=== PATIENT | male | born 1990 | race Caucasian/White ===

== ENCOUNTER 2020-09-03 17:52 | Emergency (ER) | payer SELFPAY ==
[2020-09-03 18:08] VITALS: BP 135/75; PULSE 99
[2020-09-03] MEDS ORDERED: Sodium Chloride 0.9% 10 ML Syringe FLUSH PRN (18:25)
--- NOTE | 2020-09-03 18:38 | EDM.PDOC ---
ED HPI GENERAL MEDICAL PROBLEM - General Chief Complaint: Chest Pain Stated Complaint: CHEST PAIN/RIGHT SIDE NUMBNESS Time Seen by Provider: 09/03/20 18:24 Source of Information: Reports: Patient, RN Notes Reviewed History Limitations: Reports: No Limitations - History of Present Illness INITIAL COMMENTS - FREE TEXT/NARRATIVE: Patient is a 29-year-old male who presents to the ER for the evaluation of his chest discomfort and a fall earlier today. Patient states that he has been having this chest pain off and on for the past few days, he did complain of some right side arm numbness with this today pain that radiates into his bilateral arms, neck and into his head. 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 He is having some back pain, and he thinks he struck his head on the wall, but he is not having a headache, he is having no blurred vision or double vision, and no other neurological symptoms apparent. Patient states that the pain seems to be worsened by walking. He does use marijuana socially, he does drink socially but has not used alcohol today, he does smoke cigarettes. Other than the narcolepsy, the patient states that he has no past medical history. He is further denying any fevers or chills, cough or shortness of breath, nausea/vomiting/diarrhea. States that he did smoke marijuana today as well. Middle Chest Pain Score (Numeric/FACES): 6 - Related Data Allergies Allergy/AdvReac Type Severity Reaction Status Date / Time No Known Allergies Allergy Verified 09/03/20 18:08 Home Meds: Home Meds OXcarbazepine [Trileptal] 1,200 mg PO BID 09/03/20 [History] busPIRone [Buspar] 20 mg PO BID 09/03/20 [History] Past Medical History Psychiatric History: Reports: Bipolar Social & Family History - Tobacco Use Tobacco Use Status *Q: Current Every Day Tobacco User Years of Tobacco use: 1 Packs/Tins Daily: 22 - Recreational Drug Use Recreational Drug Use: Yes Drug Use in Last 12 Months: Yes Recreational Drug Type: Reports: Marijuana/Hashish Recreational Drug Use Frequency: Weekly ED ROS GENERAL - Review of Systems Review Of Systems: Comprehensive ROS is negative, except as noted in HPI. ED EXAM, GENERAL - Physical Exam Exam: See Below Exam Limited By: No Limitations General Appearance: Alert, WD/WN, No Apparent Distress (pt does appear to be intoxicated from possible marijuana use) Eye Exam: Bilateral Eye: EOMI, Normal Inspection, PERRL Respiratory/Chest: No Respiratory Distress, Lungs Clear, Normal Breath Sounds, No Accessory Muscle Use, Chest Non-Tender Cardiovascular: Normal Peripheral Pulses, Regular Rate, Rhythm, No Edema Peripheral Pulses: 2+: Radial (L), Radial (R) Extremities: Normal Inspection, Normal Capillary Refill Neurological: Alert, Oriented, Normal Cognition, No Motor/Sensory Deficits Psychiatric: Normal Affect, Normal Mood Skin Exam: Warm, Dry, Intact, Normal Color, No Rash #1 Interpretation EKG Date: 09/03/20 Time: 18:21 Rhythm: NSR Rate (Beats/Min): 95 [place]: Normal P-Wave: Present QRS: Normal ST-T: Normal QT: Normal Comparison: NA - No Prior EKG EKG Interpretation Comments: No obvious ischemia or acute ST changes noted, reviewed by myself and Dr. Shah. Course - Vital Signs Last Recorded V/S: Last Vital Signs Temp 98.5 F 09/03/20 18:05 Pulse 99 09/03/20 18:05 Resp 16 09/03/20 18:05 BP 135/75 09/03/20 18:05 Pulse Ox 99 09/03/20 18:05 - Orders/Labs/Meds Orders: Active Orders 24 hr Category Date Time Status EKG Documentation Completion [RC] ASDIRECTED Care 09/03/20 18:11 Active Peripheral IV Care [RC] . DIRECTED Care 09/03/20 18:25 Active Sodium Chloride 0.9% [Saline Flush] Med 09/03/20 18:25 Active 10 ml FLUSH ASDIRECTED PRN Peripheral IV Insertion Adult [OM.PC] Stat Oth 09/03/20 18:25 Ordered EKG 12 Lead [EK] Stat Ther 09/03/20 18:11 Ordered Medication Orders Sodium Chloride (Sodium Chloride 0.9% 10 Ml Syringe) 10 ml FLUSH ASDIRECTED PRN PRN Reason: Keep Vein Open Last Admin: 09/03/20 20:17 Dose: 10 ml Documented by: PADMA Labs: Laboratory Tests 06/08/21 06/08/21 06/08/21 Range/Units 18:25 18:55 18:55 WBC 6.95 (4.23-9.07) K/mm3 RBC 4.33 L (4.63-6.08) M/mm3 Hgb 13.3 L (13.7-17.5) gm/dl Hct 40.0 L (40.1-51.0) % MCV 92.4 H (79.0-92.2) fl MCH 30.7 (25.7-32.2) pg MCHC 33.3 (32.2-35.5) g/dl RDW Std Deviation 45.1 H (35.1-43.9) fL Plt Count 188 (163-337) K/mm3 MPV 10.4 (9.4-12.3) fl Neut % (Auto) 67.8 (34.0-67.9) % Lymph % (Auto) 20.4 L (21.8-53.1) % [place] % (Auto) 8.9 (5.3-12.2) % Eos % (Auto) 2.7 (0.8-7.0) Baso % (Auto) 0.1 (0.1-1.2) % Neut # (Auto) 4.70 (1.78-5.38) K/mm3 Lymph # (Auto) 1.42 (1.32-3.57) K/mm3 [place] # (Auto) 0.62 (0.30-0.82) K/mm3 Eos # (Auto) 0.19 (0.04-0.54) K/mm3 Baso # (Auto) 0.01 (0.01-0.08) K/mm3 PT 10.7 (9.7-12.0) SECONDS INR 1.00 APTT 26.5 (21.7-31.4) SECONDS Sodium 145 (136-145) mEq/L Potassium 4.0 (3.5-5.1) mEq/L Chloride 110 H (98-107) mEq/L Carbon Dioxide 24 (21-32) mEq/L Anion Gap 15.0 (5-15) BUN 12 (7-18) mg/dL Creatinine 0.8 (0.7-1.3) mg/dL Est Cr Clr Drug Dosing 168.61 mL/min Estimated GFR (MDRD) > 60 (>60) mL/min BUN/Creatinine Ratio 15.0 (14-18) Glucose 137 H (70-99) mg/dL Calcium 8.3 L (8.5-10.1) mg/dL Magnesium 1.9 (1.8-2.4) mg/dL Total Bilirubin 0.2 (0.2-1.0) mg/dL AST 15 (15-37) U/L ALT 25 (16-63) U/L Alkaline Phosphatase 48 (46-116) U/L Troponin I < 0.017 (0.00-0.056) ng/mL NT-Pro-B Natriuret Pep (0-125) pg/mL Total Protein 6.5 (6.4-8.2) g/dl Albumin 3.3 L (3.4-5.0) g/dl Globulin 3.2 gm/dL Albumin/Globulin Ratio 1.0 (1-2) Urine Opiates Screen (EYGWUU=887) Ur Buprenorphine Scrn (CUTOFF=10) Ur Oxycodone Screen (XMG1AG=015) Urine Methadone Screen (GYA0FR=068) Ur Propoxyphene Screen (CHNHML=267) Ur Barbiturates Screen (HTUJVQ=619) Ur Tricyclics Screen (KAZHYR=767) Ur Phencyclidine Scrn (CUTOFF=25) Ur Amphetamine Screen (ZGGIAL=836) U Methamphetamines Scrn (FREORK=177) U Benzodiazepines Scrn (ILNKBK=656) U Cocaine Metab Screen (FOBEAA=728) U Marijuana (THC) Screen (CUTOFF=50) Ethyl Alcohol 0.00 (0.00) gm% 09/03/20 09/03/20 Range/Units 18:55 20:25 WBC (4.23-9.07) K/mm3 RBC (4.63-6.08) M/mm3 Hgb (13.7-17.5) gm/dl Hct (40.1-51.0) % MCV (79.0-92.2) fl MCH (25.7-32.2) pg MCHC (32.2-35.5) g/dl RDW Std Deviation (35.1-43.9) fL Plt Count (163-337) K/mm3 MPV (9.4-12.3) fl Neut % (Auto) (34.0-67.9) % Lymph % (Auto) (21.8-53.1) % [place] % (Auto) (5.3-12.2) % Eos % (Auto) (0.8-7.0) Baso % (Auto) (0.1-1.2) % Neut # (Auto) (1.78-5.38) K/mm3 Lymph # (Auto) (1.32-3.57) K/mm3 [place] # (Auto) (0.30-0.82) K/mm3 Eos # (Auto) (0.04-0.54) K/mm3 Baso # (Auto) (0.01-0.08) K/mm3 PT (9.7-12.0) SECONDS INR APTT (21.7-31.4) SECONDS Sodium (136-145) mEq/L Potassium (3.5-5.1) mEq/L Chloride (98-107) mEq/L Carbon Dioxide (21-32) mEq/L Anion Gap (5-15) BUN (7-18) mg/dL Creatinine (0.7-1.3) mg/dL Est Cr Clr Drug Dosing mL/min Estimated GFR (MDRD) (>60) mL/min BUN/Creatinine Ratio (14-18) Glucose (70-99) mg/dL Calcium (8.5-10.1) mg/dL Magnesium (1.8-2.4) mg/dL Total Bilirubin (0.2-1.0) mg/dL AST (15-37) U/L ALT (16-63) U/L Alkaline Phosphatase (46-116) U/L Troponin I (0.00-0.056) ng/mL NT-Pro-B Natriuret Pep 56 (0-125) pg/mL Total Protein (6.4-8.2) g/dl Albumin (3.4-5.0) g/dl Globulin gm/dL Albumin/Globulin Ratio (1-2) Urine Opiates Screen Negative (GHJAAJ=103) Ur Buprenorphine Scrn Negative (CUTOFF=10) Ur Oxycodone Screen Negative (BUL5CO=579) Urine Methadone Screen Negative (ODP5JB=148) Ur Propoxyphene Screen Negative (EXMNXT=932) Ur Barbiturates Screen Negative (TLGYKR=477) Ur Tricyclics Screen Negative (PDDIZS=561) Ur Phencyclidine Scrn Negative (CUTOFF=25) Ur Amphetamine Screen Negative (DAYREH=660) U Methamphetamines Scrn Negative (UOASGR=369) U Benzodiazepines Scrn Negative (BKZDNO=679) U Cocaine Metab Screen Negative (PELHVA=328) U Marijuana (THC) Screen Presumptive positive H (CUTOFF=50) Ethyl Alcohol (0.00) gm% Meds: Medications Generic Name Dose Route Start Last Admin Trade Name Freq PRN Reason Stop Dose Admin Sodium Chloride 10 ml 09/03/20 18:25 09/03/20 20:17 Sodium Chloride 0.9% 10 Ml Syringe FLUSH 10 ml ASDIRECTED PRN Administration Keep Vein Open Discontinued Medications Generic Name Dose Route Start Last Admin Trade Name Freq PRN Reason Stop Dose Admin Ketorolac Tromethamine 30 mg 09/03/20 19:51 09/03/20 20:18 Ketorolac 30 Mg/Ml Sdv IVPUSH 09/03/20 19:52 30 mg ONETIME ONE Administration - Re-Assessments/Exams Free Text/Narrative Re-Assessment/Exam: 09/03/20 18:37 Patient presents to the ER for his chest pain, and a fall that incurred at work today. We will get basic labs, EKG was done at time of triage and demonstrates normal sinus rhythm with no acute ST change or abnormalities reviewed by myself or Dr. Shah. Plan will be to try to get him some pain relief, after labs have resulted to try to direct management. 09/03/20 19:52 Chest x-ray has been read and demonstrates no focal abnormalities. Laboratory evaluation also is without abnormality. Troponin is undetectably low, blood alcohol level is 0. I have ordered 30 mg IV Toradol for pain management for the gentleman, he is not given us urine for a drug screen at this time. We will see if the Toradol seems to help and hopefully discharge him home with general recommendations. Likely his pain is musculoskeletal. Departure - Departure Time of Disposition: 20:54 Disposition: Home, Self-Care 01 Condition: Good Clinical Impression: Musculoskeletal chest pain Fall Qualifiers: Encounter type: initial encounter Qualified Code(s): W19.XXXA - Unspecified fall, initial encounter Instructions: Chest Wall Pain, [id number] Referrals: PCP,None [Primary Care Provider] - Forms: ED Department Discharge Additional Instructions: You were evaluated in this ER for your chest pain, and injury sustained after you had a fall at work. All laboratory evaluations, chest x-ray, and EKG are within normal limits for today's purposes. You were given a dose of IV pain medications for pain control. Chest pain is most likely due to musculoskeletal pain in nature, you may try Tylenol or ibuprofen every 6 hours as needed for ongoing pain relief. Do not exceed 4000 mg Tylenol or 3200 mg ibuprofen in a 24-hour time span. Please return to the ER if your symptoms should change or worsen. Sepsis Event Note (ED) - Evaluation Sepsis Screening Result: No Definite Risk - Focused Exam Vital Signs: Vital Signs Temp Pulse Resp BP Pulse Ox 09/03/20 18:05 98.5 F 99 16 135/75 99 - My Orders Last 24 Hours: My Active Orders 09/03/20 18:11 EKG Documentation Completion [RC] ASDIRECTED EKG 12 Lead [EK] Stat 09/03/20 18:25 Peripheral IV Care [RC] . DIRECTED Sodium Chloride 0.9% [Saline Flush] 10 ml FLUSH ASDIRECTED PRN Peripheral IV Insertion Adult [OM.PC] Stat - Assessment/Plan Last 24 Hours: My Active Orders 09/03/20 18:11 EKG Documentation Completion [RC] ASDIRECTED EKG 12 Lead [EK] Stat 09/03/20 18:25 Peripheral IV Care [RC] . DIRECTED Sodium Chloride 0.9% [Saline Flush] 10 ml FLUSH ASDIRECTED PRN Peripheral IV Insertion Adult [OM.PC] Stat
--- NOTE | 2020-09-03 18:59 | CR ---
Chest: Portable view of the chest was obtained. Comparison: No previous chest imaging is available. Heart size and mediastinum are normal. Lungs are clear with no acute parenchymal change. No acute osseous abnormality is definitely seen. Impression: 1. Nothing acute is identified on portable chest x-ray. Diagnostic code #1
[2020-09-03] MEDS ORDERED: Ketorolac 30 MG/ML SDV IVPUSH ONE (19:51)
== END 2020-09-03 21:04 | disposition home or self-care (01) ==
LOC: JD.ED 17:52
DX: R07.89 Other chest pain (principal); Z72.0 Tobacco use; W18.39XA Other fall on same level, initial encounter
CPT/HCPCS: 36415; 71045; 71045-26; 80053; 80306; 80307; 83735; 83880; 84484; 85025; 85610; 85730; 93005; 93010; 96374; 99284; 99285-25; J1885